=== PATIENT | female | born 1940 | race Caucasian/White ===

== ENCOUNTER 2018-02-04 14:00 | Outpatient (RCR) | payer BC, MEDICARE, SELFPAY ==
--- NOTE | 2018-01-10 14:41 | IE_ITS ---
Date: 01/10/18 Referring: Selwyn Frias MD M.D. Diagnosis: Vertigo, Mackenzie Training, Aerobic Guidance P.T. Diagnosis: Difficulty changing positions. 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 She states that for 2 weeks now she has had some issues with vertigo and she first noticed it while performing Piliates and at the end of the class she was performing a stretch and felt a sudden feeling like she was going to pass out. She saw her doctor who performed an Mackenzie maneuver and she was really no better. Then she was receiving a back rub by her while lying on her side. Upon rolling back over she noticed a very similar dizziness sensation but this time had spinning associated with this as well. She was taken to the ER and labs were negative and she was dx with vertigo as well as a PVC arrhythmia. She states that she has gotten a little bit better since. But she still wanted to pursue PT to see if there is anything else that can be done. Symptom Ratin/10 Prior Level of Function: Unrestricted Current Level of Function: Difficulty with any positional change of the head or body. She is unable to bend over, she cant look up without getting symptomatic involvement. Previous Treatment: Nothing yet Social: She lives in [place], [place] with her . Comorbidities: Hx of thyroid removed. Medications: Levothyroxine, Metoprolol Quality of Life: __X__ Good Standardized Measures: Other: __DHI- 46%__ OBJECTIVE: Posture: In standing pt demonstrates no significant postural abnormality worthy of note, other than a mild forward head position. Gait: Unremarkable no evidence of any severe antalgia or ataxia. Palpation: Non tender to palpation along multiple points of the head, face and neck. Vitals: BP in the sitting position 123/77 HR 90, in the standing position BP 109/71 HR 98 no symptomatic response with any positional change while taking vitals. ROM: Cervical extension 50% of available motion and guarded but non symptom provoking Cervical flexion 75% of normal motion and guarded but non symptom provoking Cervical rotation 50% of available motion and non symptom provoking Strength: Mid delt 5/5 Biceps 5/5 Wrist extension and flexion 5/5 Triceps 5/5 Actuarial Trainee strength is strong and symmetrical (B) Hip flexion 5/5 Quads 5/5 Hamstrings 5/5 Dorsiflexion/ Plantarflexion 5/5 Neuro: Pt intact to light touch and sensation through UE/ LE dermatomes, motor control appears intact through associated myotomes and pt demonstrates appropriate proprioception and kinesthetic awareness. Special Tests: Smooth pursuit and saccade with no sign of ocular drift but pt describes a mild increase in her symptoms. VOR testing pt is reluctant to proceed with any oscillation greater than 30 bpm and on this test there was no sign of ocular drift because the pt could not increase her frequency so the test was essentially invalid. Head shake and head thrust test is inconclusive as pt guards through the motion. Dikes Halpike testing with no symptomatic on either (R) or (L) side with either true vertigo or nystagmus however pt has a very strong apparent vaso vagal reaction where she appears to be lightheaded. Upon restoring the position upright she instantly gets a resolution of her symptoms. Pt admits to being very anxious at the thought of getting some of her particularly dizzy symptoms. Treatment: Tx today included the initial eval and assessment of functional abilities as well as training in a formal exercise program. Pt demonstrated verbal acknowledgment and technique demonstration. Pt taken through an Mackenzie canalith maneuver for (L) side semi circular canal bias. This is done with an attempt to see if there is any underlying symptoms with positional change and pt was very reluctant and very guarded throughout the motion of movement and this may have compromised the integrity of the maneuver. Prior to the actual Mackenzie pt was taken through a Rhomberg test and was identified that she does have a balance deficit with eyes closed making the test positive for both tandem and tightened stance. However pt is still given post tx instructions. IE: [id number] Direct treatment time: 70 minutes Total treatment time: 70minutes ASSESSMENT: Patient is a 77-year-old female with a hx of good physical health, referred for PT services with the diagnosis of vertigo. Patient presents with clinical signs and symptoms consistent with a possible resolving case of vertigo with posterior semi circular canal involvement on the (L) side, as demonstrated by the following impairment level findings: Mild symptom apprehension with positional changes of the head, strong anxiety response when in a supine position, positive rhomberg test with eyes open and eyes closed. Impairments are contributing to the following functional limitations: Difficulty with changes in position of the head, positional changes of the body. Patient is assessed as: __X__ Low [id number] ____ Moderate [id number] ____ High [id number] complexity, based on the following: History: Thyroid removed. Examination: Positive Romberg, strong anxiety response when placed in the Dikes Halpike or any supine position, strong apprehension to cervical spine motion. Presentation: X Stable Decision-Making: X Low complexity 46 % Disability based on DHI __X__ Patient requires skilled PT intervention to remediate the above functional limitations to return to: __X__ Premorbid level of function Prognosis: __X__ Good as evidence suggests improvements of functional abilities with compliance to a detailed HEP tailored to her dx and following through with PT intervention. G-Codes: Patient's primary functional limitation is in the category of: __X__ Changing and maintaining body position: [id number] based by her inability to perform any bending over motions which interferes with her house work and she is also reluctant to perform any cervical spine motion which interferes with most ADLs. Projected goal: __X__ Changing and maintaining body position: [id number] to return to premorbid level of function considering age related deficits. STG: __2__ weeks. 1 . Pt will be (I) in HEP both verbally and with ideal technique demonstration. LTG: __6__ weeks. 1. Pt unlimited involvement in all household activities including ADLs, positional changes of the head and bending over from the waist. PLAN: Patient to be seen 2 x per week, for 6 weeks, adjusting frequency of visits per patient symptoms and response to treatment. Treatment to include: X Therapeutic exercise - [id number] cardiovascular training through tailored customized endurance activity. X NRE- Utilizing canalith repositioning maneuver for restoring balance and equilibrium to the vestibular system and working on proprioceptive retraining through balance work and safety awareness. Pt will be monitored for compliance in HEP and pt status will be updated accordingly. Plan may be modified as symptoms dictate. Thank you for this referral. Please do not hesitate to contact me with any questions or concerns regarding this patient's plan of care. Selwyn Frias MD please sign below if you are in agreement with this patient's plan of care,
--- NOTE | 2018-01-13 13:20 | PTTR_ITS ---
DATE: 01/13/18 SUBJECTIVE: Pt states that she is doing quite a bit better.She has been monitoring her activity and has lightly returned to some of her Pilates type stretching. OBJECTIVE: * X Neuro Re-education - ([id number] x2):Pt was placed in the standing position demonstrating full cervical spine motion without any hesitation and no evidence of symptoms. She then performs multi-segmental trunk flexion, being able to touch her toes completely, returning to neutral without getting any symptom provocation. She is then placed into long sit on the table lowered down into supine with head looking straight towards the ceiling.She has no symptom provocation with this. Upon being returned to a long sit position, pt once again with no functional complaint of symptoms.She is then assessed with a Davina Deleon on the L, experiencing no real functional deficit, no influence of symptoms and no anxiety provocation. She is taken through a L side posterior semi-circular canal Mackenzie maneuver without any affects when brought up to the edge of the table upon completion of the maneuver. She is then trained in 2 different habituation type exercises, one with light rolling onto her L side complete with quarter turns, and then in standing she will complete quarter turns, not trying to provoke symptoms but in a way to return to normal functional vestibular stimuli. Pt tolerated treatment well. Direct treatment time: 30 min Total treatment time: 30 min direct pt care CECELIA/sarah beth
--- NOTE | 2018-01-27 15:44 | PTTR_ITS ---
DATE: 01/27/18 SUBJECTIVE: I am not doing too bad for the most part. Still having some issues from time to time. OBJECTIVE: Therapeutic procedures ([id number]). * X HEP review: Technique review and corrective modification where appropriate. * X See flow sheet: * X Provided skilled instruction in proper exercise performance: [] * X Provided skilled manual cues to facilitate proper muscle recruitment and/ or movement pattern: [] * X Other: Patient trained in habituation type exercises for vestibular accommodation. She was guided through slow progression sagittal position changes right on the verge of symptoms. Patient was guided through a modified [place] step test with HR monitoring and sit to stand endurance testing. Direct treatment time: 30 minutes of direct patient care.
--- NOTE | 2018-02-01 17:02 | PTTR_ITS ---
DATE: 02/01/18 SUBJECTIVE: I am doing okay today. OBJECTIVE: . Therapeutic procedures ([id number]). * X HEP review: Technique review and corrective modification where appropriate. * X See flow sheet: * X Provided skilled instruction in proper exercise performance: [] * X Provided skilled manual cues to facilitate proper muscle recruitment and/ or movement pattern: [] * X Other: Patient completed all corrective activities with good compliance. Direct treatment time: 30 minutes of direct patient care.
--- NOTE | 2018-02-04 15:08 | PTTR_ITS ---
DATE: 02/04/18 SUBJECTIVE: I am doing pretty well for the most part. OBJECTIVE: Therapeutic procedures ([id number]). * X HEP review: Technique review and corrective modification * X See flow sheet: Completed all activities * X Provided skilled instruction in proper exercise performance: [] * X Provided skilled manual cues to facilitate proper muscle recruitment and/ or movement pattern: [] * X Other: Patient trained in corrective instruction with exercises for the goal of establishing at least baseline familiarity with them to start her involvement in the minimally supervised program. Direct treatment time: 45 minutes of direct patient care.
== END 2018-02-04 23:59 | disposition home or self-care (01) ==
LOC: PT 14:00
PROVIDERS: PCP Internal Medicine; Referring Provider Internal Medicine; Visit Provider Internal Medicine
DX: H81.12 Benign paroxysmal vertigo, left ear (principal)
CPT/HCPCS: 97110; 97112; 97161

== ENCOUNTER 2024-02-14 02:28 | Emergency (ER) | payer MEDICARE, BC, SELFPAY ==
[2024-02-14 02:59] VITALS: BP 185/115; PULSE 73; RESP 16; TEMP 36.7; O2SAT 98
--- NOTE | 2024-02-14 03:30 | DI.RAD_ITS ---
Exam(s) XR HAND RT COMPLETE EXAM: XR HAND RT COMPLETE CLINICAL HISTORY: laceration to base of thumb, eval foreign body. TECHNIQUE: 2D digital imaging was performed. Three views. COMPARISON: No exams were available for comparison FINDINGS: BONES: No acute fracture is present. No bony destructive lesion is seen. JOINTS: No dislocation present. Severe degenerative changes 1st carpal metacarpal joint as well as interphalangeal joints of the fingers. SOFT TISSUE: Swelling around wrist. No foreign body. IMPRESSION: Degenerate changes. No evidence of foreign body DATA REPOSITORY: RADIATION DOSE DELIVERED:
--- NOTE | 2024-02-14 03:38 | W.ED.GENAD ---
Discharge Plan Disposition Patient Disposition: Home Condition: Good Discharge Details Clinical Impression: Laceration of right hand ED Provider: Kristel Carrizales Home Meds and New Rx's Prescriptions: Continued levothyroxine 125 MCG tablet 112 mcg PO DAILY lisinopril 5 mg tablet 5 mg PO DAILY latanoprost 0.005 % drops 1 drp ophthalmic (eye) DAILY Patient Comments: INSTILL ONE DROP IN EACH EYE EVERY EVENING metoprolol tartrate 12.5 MG tablet 12.5 mg PO DAILY Discharge Instructions Instructions: Laceration Repair With Stitches ED Additional Instructions: Stitches out in 7-10 days; primary care doctor, urgent care, or here in the ED. Keep the wound clean and dry; it is okay to shower but do not soak your hand. Return to the emergency department for new or worsening symptoms including worsening pain, thick green or white discharge from the wound, redness spreading from around the wound, numbness in your thumb or difficulty moving your thumb, or if you have any other concerns. HPI General Mode of arrival: ambulatory. Date/Time Provider Initiated Documentation: 02/14/24 03:04. Limitations to Documentation: no limitations. Information obtained by: patient and family. HPI Narrative: 83yo F not on AC presenting with laceration. Broke a glass in the sink and cut her hand at the base of her thumb, initially was bleeding heavily. No numbness, tingling, or weakness in her thumb or hand. No lightedheadness. Otherwise in her usual state of health. Related Data Home Medications ?Medication ?Instructions ?Recorded ?Confirmed levothyroxine 125 mcg tablet 112 mcg PO DAILY 11/26/12 02/14/24 metoprolol tartrate 25 mg tablet 12.5 mg PO DAILY 12/24/17 02/14/24 latanoprost 0.005 % eye drops 1 drp ophthalmic (eye) DAILY 02/14/24 02/14/24 lisinopril 5 mg tablet 5 mg PO DAILY 02/14/24 02/14/24 Allergies Allergy/AdvReac Type Severity Reaction Status Date / Time No Known Allergies Allergy Unverified 02/14/24 03:12 General Stated Complaint: Laceration ADOLFO: 4 Review of Systems Narrative: see HPI Exam Narrative Exam Narrative: General: Alert, well appearing, well nourished, in no acute distress. Head: Normocephalic, atraumatic Neck: Trachea midline, ?Neck supple. Cardiac: ?Well perfused. Equal symmetric 2+ radial pulses bilaterally. Resp: No respiratory distress. Speaking in full sentences. Abd: ?Non-distended Extremities: ?No deformities.? No peripheral edema. RUE: ~2.5cm shallow linear laceration to palmar/lateral surface of hand just proximal to thumb. Hemostatic. Sensation to light touch intact throughout hand and thumb, full strength at all digits. Neurologic: GCS 15. ? Moves all extremities freely against gravity Course Vital Signs Vital signs: Vital Signs Temperature 36.7 C 02/14/24 02:59 Pulse 73 02/14/24 02:59 Respiratory Rate 16 02/14/24 02:59 Blood Pressure 185/115 H 02/14/24 02:59 Pulse Oximetry 98 02/14/24 02:59 Temperature 36.7 C 02/14/24 02:59 Temperature Source Temporal Artery Scan 02/14/24 02:59 Pulse 73 02/14/24 02:59 Respiratory Rate 16 02/14/24 02:59 Respiratory Effort Normal, Non-Labored 02/14/24 03:03 Blood Pressure 185/115 H 02/14/24 02:59 Blood Pressure Position Sitting 02/14/24 02:59 Pulse Oximetry 98 02/14/24 02:59 Oxygen Delivery Method Room Air 02/14/24 02:59 Oxygen Flow Rate 0 02/14/24 02:59 Pain Level 0 02/14/24 02:59 Procedures Laceration Laceration 1: Site: hand Side (If applicable): right Size (cm): 2.5 Description: linear Depth: simple, single layer Local anesthetic: Lidocaine 2% and with Epi Amount of anesthesia used (mL): 4 Pre-repair: wound explored, irrigated extensively and deep structures intact Skin layer closed with: nylon Size (cm): 5-0 Number of sutures: 8 Technique: simple, interrupted Medical Decision Making 83yo F not on AC presenting with laceration; broke a glass in the sink and cut her hand at the base of her thumb. Hypertensive on arrival, vital signs otherwise reassuring. ~2.5cm shallow linear laceration at base of thumb, hemostatic, no sensory or motor deficits. Not concerned for hemodynamically significant hemmoraghe; would not get labs. No indication for CT/vascular imaging. Will get plain films to eval for foreign body. Unknown last tetanus; will give booster. Plain films independently reviewed; no radioopaque foreign body on my view, agree with radiology read below. Laceration repaired. On reassessment patient continues with full intact sensation and movement throughout thumb and hand. Discharged home; discharge instructions and return precautions were reviewed with patient who verbalized understanding. All questions were answered and she is in full agreement with the plan. Imaging Data Radiologic Study: Imaging: X-Ray Radiologist's impression: IMPRESSION: 1. No acute fracture or subluxation. 2. No radiopaque foreign body identified. 3. Soft tissue swelling. Quality:SDOH Health Related Social Needs: No Data to Display [facility] All Active Problems (Updated 02/14/24 @ 04:48 by Kristel Carrizales MD) Laceration of right hand (Acute) Social History Smoking/Tobacco Use Status: Never Smoking risk assessment performed?: Yes Alcohol Intake: never Drug use: Never Substance use type: does not use Housing: house Do you feel safe at home: Yes Do you feel safe in your relationship?: Yes
[2024-02-14] MEDS: Tetanus & Diphtheria Tox,ADULT 0.5 ML VIAL IM (04:53)
--- NOTE | 2024-02-14 04:53 | DI.VRAD_ITS ---
PROCEDURE INFORMATION: Exam: XR Right Hand Exam date and time: 02/14/2024 4:01 AM Age: 83 years old Clinical indication: Injury or trauma; Other: Cut from glass; Laceration; Hand; Right; Injury date: 02/14/24; Injury details: Cut by glass, base of thumb/palm TECHNIQUE: Imaging protocol: Radiologic exam of the right hand. Views: 3 or more views. COMPARISON: No relevant prior studies available. FINDINGS: Bones/joints: No acute fracture or subluxation. Degenerative changes. Soft tissues: Soft tissue swelling in the wrist. No radiopaque foreign body identified. IMPRESSION: 1. No acute fracture or subluxation. 2. No radiopaque foreign body identified. 3. Soft tissue swelling. Dictated and Authenticated by: Vineet Ortiz MD. Ordering:JEWEL Humphries MD
--- NOTE | 2024-02-14 05:01 | NUR.NOTE ---
Suture repair dressed with bacitracin, telfa, and kerlix per provider, ANGELLA
[2024-02-14 05:07] VITALS: BP 167/79; PULSE 71; RESP 16; O2SAT 97
== END 2024-02-14 05:21 | disposition home or self-care (01) ==
LOC: ER 05:58
PROVIDERS: Emergency Provider Student in an Organized Health Care Education/Training Program
DX: S61.411A Laceration without foreign body of right hand, initial encounter (principal); Z23 Encounter for immunization; W25.XXXA Contact with sharp glass, initial encounter
CPT/HCPCS: 12001; 90471; 90714; 99284; 73130; 99283

== ENCOUNTER 2024-09-26 21:14 | Outpatient (REF) | payer MEDICARE, BC, SELFPAY | END 2024-09-26 21:15 | disposition home or self-care (01) | LOC: LBN 21:14 | PROVIDERS: PCP Internal Medicine; Visit Provider Nurse Practitioner Family | DX: N30.00 Acute cystitis without hematuria (principal) | CPT/HCPCS: 87086 ==

== ENCOUNTER 2025-03-04 17:28 | Observation (INO) | payer MEDICARE, BC, SELFPAY ==
[2025-03-04] VITALS (13 sets, daily range): BP systolic 93–146; BP diastolic 39–77; PULSE 81–108; RESP 9–28; TEMP 36.5–36.7; O2SAT 91–98
--- NOTE | 2025-03-04 17:30 | RT.EKG_ITS ---
APPROVED REPORT Exam: Resting ECG Reason for Exam: unresponsive, tachycardia Patient Location: E HR:81 bpm ECG Measurements Heart Rate 81 AXIS PA 169 P 70 QRSd 100 QRS 64 QT 408 T 50 QTc 474 Conclusion Sinus rhythm...normal P axis, V-rate 60- 99 Probable left atrial enlargement...P >50mS, <-0.10mV V1 Low voltage, precordial leads...precordial leads <1.0mV Physician: No STEMI
--- NOTE | 2025-03-04 17:30 | RT.EKG_ITS ---
APPROVED REPORT Exam: Resting ECG Reason for Exam: unresponsive Patient Location: E HR:108 bpm ECG Measurements Heart Rate 108 AXIS AL 152 P 79 QRSd 92 QRS 80 QT 342 T 51 QTc 459 Conclusion Sinus tachycardia...rate> 99 Probable left atrial enlargement...P >50mS, <-0.10mV V1 Probable inferior infarct, old...Q>35mS, II III aVF ST depr, consider ischemia, anterolateral lds...ST <-0.10mV, I aVL V2-V6 I have reviewed and interpreted ECG and agree with software generated interpretation. Physician: No STEMI
--- NOTE | 2025-03-04 17:45 | W.ED.GENAD ---
Discharge Plan Disposition Patient Disposition: Admit to [facility] Condition: Stable Discharge Details Clinical Impression: Unresponsive episode, Nodule of lower lobe of left lung, Lesion of humerus present on x-ray Admit Date/Time: 03/04/25 20:44 Admit Provider: Napoleon Rangel Attending Provider: Napoleon Rangel Primary Care Provider: ALIVIA TAI ED Provider: Bina Yang Discharge Data Discharge Date/Time-TO BE ENTERED AT DEPARTURE: 03/04/25 21:39 HPI General Date/Time Provider Initiated Documentation: 03/04/25 17:30. HPI Narrative: Karli is an 85-year-old female who presents to the emergency department today via private vehicle for unresponsiveness. She told her that she was feeling unwell while they were at a golf tournament, got into the car and became unresponsive approximately 10 minutes prior to arrival to ED. She was driven to the emergency department immediately, was found to be unresponsive to all commands, eyes partially open but not tracking. Episode lasted until approximately 5 minutes after arrival at which time she opened eyes spontaneously and is able to answer questions. She reports she is feeling so-so and says that she feels tired, denies headache, chest pain, difficulty breathing, abdominal pain, nausea/vomiting. Says she was feeling well when she woke up this morning, became unwell while golfing but cannot describe what symptoms she had. Says she took her medications this morning. After waking up, Karil was able to give more of a history. She reports that this she woke up feeling fine, ate a large breakfast. They went to a [place] the [employer] [place] with friends, she did 9 holes of golf, says that she was walking up and down hills. At the last hole she was walking up a hill and all of a sudden felt her heart racing and she felt unwell. She does have a history of tachycardia, says that this is the reason why she uses metoprolol. Usually when she ends up with tachycardia she has tingling in her fingers and feels warm all over. This time she did not have the warmth or the tingling, just felt unwell, so she laid down in the car. She remembers sitting her car seat back, and then waking up in the emergency department. She has a PCP in [place], Dr. Frias. Has seen cardiology previously, none recently, says cardiac meds are managed by PCP. Blood glucose 139 at arrival in ED. Admits to history of cardiac diagnoses (tachycardia), denies history of NC, takes metoprolol and lisinopril for hypertension.. Takes levothyroxine for hypothyroidism. On arrival, Ajay was unresponsive to voice or noxious stimuli, eyes were partially open, not moving any extremities. After awakening while en route to CT scan (stroke alert), she became alert and oriented x 4, easily conversational. Tacky mucous membranes. Easy work of breathing, lung sounds clear bilaterally. Normal heart sounds, regular rate and rhythm. Equal bilateral radial pulses. Abdomen soft, nondistended, nontender to palpation. Moving extremities equally, 5/5 muscle strength to upper and lower extremities. NIHSS 0. No pedal edema. D/dx includes but is not limited to: TIA, cardiac arrhythmia, cardiogenic syncope, nonconvulsive seizure, hydration, electrolyte imbalance, acute renal or liver failure, sepsis, encephalitis I independently interpreted the following tests: Initial EKG shows sinus tachycardia rate 108; repeat performed showing normal sinus rhythm rate 81, no changes consistent with his acute ischemia, normal intervals. CBC, CMP, serial troponins (10, 16), TSH, UA, and COVID/flu/RSV all reassuring. CMP only notable for elevated BUN to creatinine ratio (23:1.1), concerning for mild dehydration. CTA head and neck performed, no acute abnormalities noted. Chest x-ray performed, acute abnormalities. Dr. Alba did read the x-ray after V rad, noted sclerotic lesion on humerus and 9 mm left lower lobe lesion. As patient was already admitted by the time of this report was received, I notified hospitalist of results While in the emergency department, Karli received 500 cc normal saline. Reports feeling well overall, after recovery from unresponsive episode. Vital signs stable on monitor. Although workup today very reassuring, patient's cardiac history with history of tachycardia is concerning. Presented case to Dr. Juan Carlos vallejo; she is agreeable with plan to admit for observation overnight and close cardiology follow-up. Patient and her are agreeable with plan of care. Related Data Home Medications ?Medication ?Instructions ?Recorded ?Confirmed levothyroxine 125 mcg tablet 112 mcg PO DAILY 11/26/12 03/04/25 metoprolol tartrate 25 mg tablet 12.5 mg PO DAILY 12/24/17 03/04/25 latanoprost 0.005 % eye drops 1 drp ophthalmic (eye) HS 02/14/24 03/04/25 lisinopril 5 mg tablet 5 mg PO DAILY 02/14/24 03/04/25 timolol maleate 0.5 % eye drops 1 drp ophthalmic (eye) DAILY 03/04/25 03/04/25 Allergies Allergy/AdvReac Type Severity Reaction Status Date / Time No Known Allergies Allergy Unverified 03/04/25 20:53 General ADOLFO: 4 Exam Narrative Exam Narrative: Upon arrival: pt breathing spontaneously, easy work of breathing, lung sounds clear bilaterally. Normal heart sounds, tachycardia noted. Abdomen soft, nondistended. Tacky mucous membranes. Eyes open, not responding to verbal or tactile stimulus. After resolution of unresponsive episode (see by system below) Const General: cooperative, healthy appearing, comfortable, no acute distress and well developed Nutritional Appearance: average body habitus and well nourished Orientation: oriented x3 [facility] Head: normal to inspection, normocephalic and atraumatic Ears: hearing grossly normal bilaterally General nose exam: external nose normal Face and sinus: normal facial exam and dry mucous membranes (tacky MM) Mouth: oral mucosae normal, lip normal and tongue normal Teeth and gingiva: dentition normal Neck Neck: normal visual inspection and full ROM Resp Effort & Inspection: normal respiratory effort and able to speak in complete sentences Auscultation: clear to auscultation bilaterally Cardio Rate: regular rate Rhythm: regular rhythm GI Inspection: normal to inspection, no abdominal wall ecchymosis and non-distended Palpation: soft, not firm, no guarding, not rigid and nontender Auscultation: normal bowel sounds Skin General skin exam: no rashes or lesions noted Neuro General: patient alert, patient oriented x3, tone normal, moves all extremities, no meningeal signs, no focal motor deficits and CN's II-XI intact bilaterally Cranial Nerves: CN's II-XI intact bilaterally, PERRL, EOM intact bilaterally, no nystagmus and facial strength normal Cognition: normal cognition Speech: speech normal Gait: normal gait Motor: muscle tone normal throughout, strength 5/5 throughout and no pronator drift Sensory Exam: no sensory deficits noted Extrem General: normal to inspection, full ROM, capillary refill normal and no pedal edema Medical Decision Making Imaging Data Radiologic Study: Radiologist's impression: Exam(s) XR PORTABLE CHEST AP EXAM: XR PORTABLE CHEST AP CLINICAL HISTORY: unresponsive episode, not feeling well. TECHNIQUE: 2D digital imaging was performed. COMPARISON: CR CHEST 2 VIEWS PA,LAT from 12/21/2013 FINDINGS: Single AP portable view. Heart size is upper normal. The mediastinum is not widened. Right lung is clear. There is a small nodule in the left lower lobe retrocardiac region measuring 9 mm. No other focal pulmonary findings. Sclerotic focal densities seen in the right humeral head measuring 1 cm. Possible bone island but cannot exclude more significant pathology as this was not evident on the chest x-ray of 2013 which also included the right humeral head. IMPRESSION: There is a 9 mm nodule in the left lower lobe.Recommend follow-up CT scan Also finding in the right humeral head as described above. Radiologic Study #2: Radiologist's impression: Exam(s) CT BRAIN NECK CTA EXAM: CT BRAIN NECK CTA CLINICAL HISTORY: unresponsive. TECHNIQUE: Imaging Protocol: Axial CT angiography was performed with multi-slice acquisition and multi-planar and/or 3D reconstructions. CONTRAST MATERIAL: Intravenous: Omnipaque 350 Contrast volume:structured data in ml COMPARISON: No exams were available for comparison FINDINGS: CTA Neck W: Aortic arch anatomy: The aortic arch anatomy is conventional and there is no significant stenosis at the origin of the great vessels off of the aortic arch. No intimal flap evident. Anterior circulation: Both common carotid arteries ascend with normal luminal diameters. At the level the carotid bulbs and proximal internal carotid arteries there is both calcified and noncalcified plaque evident bilaterally. On the right side there is partially calcified plaque on the medial wall and also involving the proximal right ICA but the amount of stenosis is approximately only 10 percent. On the left side there is circumferential peripherally calcified plaque at the carotid bulb and proximal ICA with approximately 40 percent stenosis. Another area of peripherally calcified plaque is seen just above this but with only approximately 20 percent stenosis at this level in the proximal left ICA. Both internal carotid arteries in the upper neck are patent and non tortuous and there are demonstrated to be patent in the skull base-carotid canals. Posterior circulation: Both vertebral arteries originate in conventional fashion off of the subclavian arteries and there is no obvious stenosis at the origin of the vertebral arteries. Both vertebral arteries exhibit normal luminal diameters within the foramen transversarium. No significant stenosis nor thrombosis nor evidence of vertebral artery dissection. Both vertebral arteries contribute to the formation of the basilar artery at the skull base. No significant stenosis of these vessels at the skull base level. CTA Brain W: Anterior circulation: Both internal carotid arteries are patent in the skull base-carotid canals as well as within the cavernous sinuses. The supraclinoid aspects of the ICAs are patent. Both A1 segments are patent as are the anterior cerebral arteries and there is no evidence of aneurysm at the level of the anterior communicating artery. There is some variant at anatomy in the anterior cerebral artery with a dominant proximal anterior cerebral artery which bifurcates somewhat more distally. Both middle cerebral arteries are patent with no evidence of significant stenosis nor intraluminal thrombus. There also no aneurysms of these vessels. Posterior circulation: Basilar artery ascends without significant stenosis. Distally it gives off superior cerebellar arteries and above this level terminates as patent posterior cerebral arteries. There is no evidence of aneurysm at the tip of the basilar artery nor elsewhere in the [id number]. CT BRAIN: There is no evidence of intracranial hemorrhage, mass effect, or shift of midline structures. There are no extra-axial fluid collections. Ventricles are not enlarged or shifted. There are no ring enhancing lesions in the brain and no abnormal meningeal enhancement. IMPRESSION: 1. There is some atherosclerotic involvement of the carotid bulbs and proximal ICAs as described above, more prominent on the left side where there is approximately 40 percent stenosis. Significant less stenosis on the right side. No significant tortuosity of the internal carotid arteries in the neck and no evidence of dissection of these vessels. 2. Patent vertebral arteries. No stenosis, thrombosis, nor dissection. 3. Patent intracranial arteries. 4. No acute intracranial findings. PFSH All Active Problems (Updated 03/04/25 @ 22:37 by Bina Holman) Lesion of humerus present on x-ray (Acute) Nodule of lower lobe of left lung (Acute) Unresponsive episode (Acute) Social History Smoking/Tobacco Use Status: Never Smoking risk assessment performed?: Yes Alcohol Intake: never Drug use: Never Substance use type: does not use Housing: house Do you feel safe at home: Yes Do you feel safe in your relationship?: Yes
[2025-03-04 17:46] LABS: Abs Immature Grans 0.03 10^3/uL (0.0-0.06); HCT 44.5 % (36.0-46.0); HGB 14.5 g/dL (11.2-15.7); MCH 29.5 pg (27.0-33.0); MCHC 32.6 % (32.0-36.0); MCV 90 fL (80-95); MPV 10.4 fL (8.0-11.0); Platelet Count 304 10^3/uL (130-400); RBC 4.92 10^6/uL (3.93-5.22); RDW 12.2 % (11.7-14.6); RDW-SD 40.3 fL; WBC 8.02 10^3/uL (4.4-10.8)
[2025-03-04] MEDS: Omnipaque 350 MG/ML 100 ML BTL IJ (17:46)
[2025-03-04] MEDS: Normal Saline Flush 10 ML SYR IVP (17:46)
[2025-03-04] MEDS: Normal Saline - Diluent 50 ML VIAL IJ (17:47)
--- NOTE | 2025-03-04 18:00 | DI.CT_ITS ---
Exam(s) CT BRAIN NECK CTA EXAM: CT BRAIN NECK CTA CLINICAL HISTORY: unresponsive. TECHNIQUE: Imaging Protocol: Axial CT angiography was performed with multi- slice acquisition and multi-planar and/or 3D reconstructions. CONTRAST MATERIAL: Intravenous: Omnipaque 350 Contrast volume:structured data in ml COMPARISON: No exams were available for comparison FINDINGS: CTA Neck W: Aortic arch anatomy: The aortic arch anatomy is conventional and there is no significant stenosis at the origin of the great vessels off of the aortic arch. No intimal flap evident. Anterior circulation: Both common carotid arteries ascend with normal luminal diameters. At the level the carotid bulbs and proximal internal carotid arteries there is both calcified and noncalcified plaque evident bilaterally. On the right side there is partially calcified plaque on the medial wall and also involving the proximal right ICA but the amount of stenosis is approximately only 10 percent. On the left side there is circumferential peripherally calcified plaque at the carotid bulb and proximal ICA with approximately 40 percent stenosis. Another area of peripherally calcified plaque is seen just above this but with only approximately 20 percent stenosis at this level in the proximal left ICA. Both internal carotid arteries in the upper neck are patent and non tortuous and there are demonstrated to be patent in the skull base-carotid canals. Posterior circulation: Both vertebral arteries originate in conventional fashion off of the subclavian arteries and there is no obvious stenosis at the origin of the vertebral arteries. Both vertebral arteries exhibit normal luminal diameters within the foramen transversarium. No significant stenosis nor thrombosis nor evidence of vertebral artery dissection. Both vertebral arteries contribute to the formation of the basilar artery at the skull base. No significant stenosis of these vessels at the skull base level. CTA Brain W: Anterior circulation: Both internal carotid arteries are patent in the skull base-carotid canals as well as within the cavernous sinuses. The supraclinoid aspects of the ICAs are patent. Both A1 segments are patent as are the anterior cerebral arteries and there is no evidence of aneurysm at the level of the anterior communicating artery. There is some variant at anatomy in the anterior cerebral artery with a dominant proximal anterior cerebral artery which bifurcates somewhat more distally. Both middle cerebral arteries are patent with no evidence of significant stenosis nor intraluminal thrombus. There also no aneurysms of these vessels. Posterior circulation: Basilar artery ascends without significant stenosis. Distally it gives off superior cerebellar arteries and above this level terminates as patent posterior cerebral arteries. There is no evidence of aneurysm at the tip of the basilar artery nor elsewhere in the [id number]. CT BRAIN: There is no evidence of intracranial hemorrhage, mass effect, or shift of midline structures. There are no extra-axial fluid collections. Ventricles are not enlarged or shifted. There are no ring enhancing lesions in the brain and no abnormal meningeal enhancement. IMPRESSION: 1. There is some atherosclerotic involvement of the carotid bulbs and proximal ICAs as described above, more prominent on the left side where there is approximately 40 percent stenosis. Significant less stenosis on the right side. No significant tortuosity of the internal carotid arteries in the neck and no evidence of dissection of these vessels. 2. Patent vertebral arteries. No stenosis, thrombosis, nor dissection. 3. Patent intracranial arteries. 4. No acute intracranial findings. Preliminary virtual Radiology report was reviewed Final report called by myself to the hospitalist 03/04/2025 at 9:56 p.m. RADIATION DOSE DELIVERED: 2,308.16mGy.cm Total DLP DATA REPOSITORY: All CT scans at this facility are submitted to the National Radiology Data Registry (NRDR) Dose Index Registry (DIR) with the [employer] (ACR). RADIATION OPTIMIZATION: All CT scans at this facility use at least one of these dose optimization techniques: automated exposure control; mA and/or kV adjustment per patient size (includes targeted exams where dose is matched to clinical indication); or iterative reconstruction.
[2025-03-04 18:11] LABS: ALT 17 U/L (14-59); AST 17 U/L (15-37); Albumin 4.4 g/dL (3.4-5.0); Alkaline Phosphatase 80 U/L (46-116); Anion Gap 11.7 mmol/L (3-11); BUN 23 mg/dL (7-18); Bilirubin, Total 0.6 mg/dL (0.2-1.0); CO2 24.3 mmol/L (21.0-32.0); Calcium 9.5 mg/dL (8.5-10.1); Chloride 105 mmol/L (98-107); Estimated GFR 48.63 (mL/min/1.73m2); Glucose 153 mg/dL (74-106); Potassium 4.3 mmol/L (3.5-5.1); Sodium 141 mmol/L (136-145); TSH (W/Ref FT4) 5.07 uIU/mL (0.36-3.74); Total Protein 7.1 g/dL (6.4-8.2); Troponin I 10 ng/L (<or=51)
--- NOTE | 2025-03-04 18:12 | DI.VRAD_ITS ---
PROCEDURE INFORMATION: Exam: CTA Head Without And With Contrast, Arteriography Exam date and time: 03/04/2025 5:43 PM Age: 85 years old Clinical indication: Stroke-like symptoms; Other: Unresponsive TECHNIQUE: Imaging protocol: Computed tomographic angiography of the head without and with contrast. Exam focused on the arteries. 3D rendering (Not supervised by radiologist): MIP and/or 3D reconstructed images were created by the technologist. Contrast material: OMNIPAQUE 350; Contrast volume: 70 ml; Contrast route: INTRAVENOUS (IV); Other technique: STROKE PROTOCOL was implemented. COMPARISON: No relevant prior studies available. FINDINGS: ANTERIOR CIRCULATION: Right internal carotid artery: Intracranial segment is patent with no significant stenosis or occlusion. No aneurysm. Right middle cerebral artery: No occlusion or significant stenosis. No aneurysm. Right anterior cerebral artery: No occlusion or significant stenosis. No aneurysm. Left internal carotid artery: Intracranial segment is patent with no significant stenosis. No aneurysm. Left middle cerebral artery: No occlusion or significant stenosis. No aneurysm. Left anterior cerebral artery: No occlusion or significant stenosis. No aneurysm. POSTERIOR CIRCULATION: Right vertebral artery: No occlusion or significant stenosis. No aneurysm. Left vertebral artery: No occlusion or significant stenosis. No aneurysm. Basilar artery: No occlusion or significant stenosis. No aneurysm. Right posterior cerebral artery: No occlusion or significant stenosis. No aneurysm. Left posterior cerebral artery: No occlusion or significant stenosis. No aneurysm. HEAD: Brain: Normal. No hemorrhage. Unremarkable white matter. No mass effect. Cerebral ventricles: Normal. No ventriculomegaly. Bones: Unremarkable. No acute fracture. Paranasal sinuses: Visualized sinuses are normal. No fluid levels. Mastoid air cells: Visualized mastoids are normal. No mastoid effusion. Soft tissues: Unremarkable. IMPRESSION: 1. No large vessel occlusion. 2. Unremarkable CT head. ASSESSMENT: ASPECTS ([place] Stroke Program Early CT Score) is 10. PROCEDURE INFORMATION: Exam: CTA Neck Without And With Contrast Exam date and time: 03/04/2025 5:43 PM Age: 85 years old Clinical indication: Stroke-like symptoms; Other: Unresponsive TECHNIQUE: Imaging protocol: Computed tomographic angiography of the neck without and with contrast. Exam focused on the cervical segments of the vasculature. 3D rendering (Not supervised by radiologist): MIP and/or 3D reconstructed images were created by the technologist. Contrast material: OMNIPAQUE 350; Contrast volume: 70 ml; Contrast route: INTRAVENOUS (IV); COMPARISON: No relevant prior studies available. FINDINGS: Right common carotid artery: No stenosis. No dissection or occlusion. Right internal carotid artery: No stenosis of the extracranial segment. No dissection or occlusion. Right external carotid artery: No occlusion or stenosis of the origin. Left common carotid artery: No stenosis. No dissection or occlusion. Left internal carotid artery: No stenosis of the extracranial segment. No dissection or occlusion. Left external carotid artery: No occlusion or stenosis of the origin. Right vertebral artery: No stenosis. No dissection or occlusion. Left vertebral artery: No stenosis. No dissection or occlusion. Soft tissues: Normal. No significant soft tissue swelling. Bones/joints: No acute fracture. IMPRESSION: No stenosis or occlusion. REFERENCES: NASCET CRITERIA. The degree of stenosis in the cervical segment of the internal carotid artery is based on NASCET criteria. Normal is no stenosis. Mild is less than 50% stenosis. Moderate is 50-69% stenosis. Severe is 70% to 99% stenosis. Total occlusion is no detectable patent lumen. Dictated and Authenticated by: Sanju Gibbons MD. Orderin Jonas Curran MD
[2025-03-04] MEDS: Normal Saline 500 ML IV (18:14)
[2025-03-04 18:23] LABS: Immature Grans % 0.0 %
[2025-03-04 18:24] LABS: RBC Morphology Normal
--- NOTE | 2025-03-04 18:28 | DI.VRAD_ITS ---
PROCEDURE INFORMATION: Exam: XR Chest Exam date and time: 03/04/2025 6:13 PM Age: 85 years old Clinical indication: Other: Unresponsive, not feeling well TECHNIQUE: Imaging protocol: Radiologic exam of the chest. Views: 1 view. COMPARISON: No relevant prior studies available. FINDINGS: Lungs: Unremarkable. No consolidation. Pleural spaces: Unremarkable. No pleural effusion. No pneumothorax. Heart/Mediastinum: Unremarkable. No cardiomegaly. Bones/joints: Degenerative changes of the spine and bilateral shoulder joints. IMPRESSION: No acute findings. Dictated and Authenticated by: Sanju iGbbons MD. Orderin Jonas Curran MD
[2025-03-04 19:15] LABS: COVID-19 PCR Negative (Negative); RSV PCR Negative (Negative)
[2025-03-04 19:30] LABS: Troponin I 16 ng/L (<or=51)
[2025-03-04 20:40] LABS: Glucose Negative (Negative)
[2025-03-04 20:47] LABS: C & S Indicated? Yes; RBC 0-2 HPF (0-2)
--- NOTE | 2025-03-04 20:54 | W.PM.HP.N ---
Date of service: 03/04/25 Time of Service: 20:00 Assessment and Plan Assessment and plan (1) Unresponsive episode: Status: Acute Assessment and plan: Approximately 15 minutes of unresponsiveness after syncopal event Concerning for CVA but CT/CTA negative for acute pathology Less likely post-ictal given cardiac history Admit for observation and cardiac monitoring Likely can DC Mar 05 with close outpatient cardiology followup (2) Syncope and collapse: Status: Acute Assessment and plan: Exhaustion vs dehydration vs tachycardia Slow return to responsiveness concerning as above (3) Chronic tachycardia: Status: Acute Assessment and plan: Patient reports previous episodes of palpitations and has been worked up by cardiology Continue home metoprolol (4) Benign essential hypertension: Status: Acute Assessment and plan: Normotensive on admission Continue home lisinopril, metoprolol (5) Hypothyroidism: Status: Chronic Assessment and plan: TSH and free T4 slightly elevated Hold levothyroxine Recommend recheck with PCP for possible medication adjustment (6) Nodule of lower lobe of left lung: Status: Acute Assessment and plan: Incidental finding on XR 9 mm nodule in LLL Outpatient followup (7) Lesion of humerus present on x-ray: Status: Acute Assessment and plan: Incidental finding on XR 1 cm sclerotic lesion in the right humeral head Outpatient followup (8) Glaucoma: Status: Chronic Assessment and plan: Continue home latanoprost and timolol History of Present Illness History of Present Illness Chief Complaint: syncope Narrative: Karli Rojas is an 85 year old woman presenting March 04 after an episode of syncope and 15 minutes of unresponsiveness. She participated in a golf tournament today, playing 9 holes with exertion climbing hills. Towards the end of the course she felt her heart racing, and reported to her that she did not feel well. Shortly after she sat down in the car and passed out, and for 15 minutes she was not rousable. In the ED patient was initially unresponsive, with eyes open but not tracking, and after about 5 minutes she roused and began to interact. She was unable to recall any events between sitting in the car and waking up in the ED. 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 She reports that she took her medications as usual this morning including her levothyroxine, lisinopril and metoprolol. No chest pain, no shortness of breath, no abdominal pain, no N/V/D. In the ED she was mildly tachycardic 108, hypotensive 93/41, tachypneic 28. EKG without evidence of STEMI. CXR with 9mm LLL pulmonary nodule and 1 cm sclerotic density in the right humeral head; no acute pathology. CT/CTA head/neck without acute lesion nor vascular occlusion; bilateral carotid atherosclerosis with 40% stenosis on the left. CBC unremarkable. BUN and creatinine mildly elevated at 23 and 1.1, glucose elevated 153. TSH elevated 5.07 with free T4 elevated 1.52. Proteinuria. Negative flu/COVID/RSV panel. Urine culture sent. PMH includes HTN on lisinopril and metoprolol, hypothyroidism on levothyroxine, glaucoma on latanoprost and timolol. She lives in [place] with her and enjoys an active lifestyle. PFSH All Active Problems (Updated 03/05/25 @ 01:09 by Napoleon Rangel MD) Glaucoma (Chronic) Hypothyroidism (Chronic) Chronic tachycardia (Acute) Benign essential hypertension (Acute) Syncope and collapse (Acute) Lesion of humerus present on x-ray (Acute) Nodule of lower lobe of left lung (Acute) Unresponsive episode (Acute) Social History Smoking/Tobacco Use Status: Never Smoking risk assessment performed?: Yes Alcohol Intake: never Drug use: Never Substance use type: does not use Housing: house Do you feel safe at home: Yes Do you feel safe in your relationship?: Yes Meds Allergies and Home Medications Allergies Allergy/AdvReac Type Severity Reaction Status Date / Time No Known Allergies Allergy Unverified 03/04/25 20:53 Home Medications ?Medication ?Instructions ?Recorded ?Confirmed ?Type levothyroxine 125 mcg tablet 112 mcg PO DAILY 11/26/12 03/04/25 History metoprolol tartrate 25 mg tablet 12.5 mg PO DAILY 12/24/17 03/04/25 History latanoprost 0.005 % eye drops 1 drp ophthalmic (eye) HS 02/14/24 03/04/25 History lisinopril 5 mg tablet 5 mg PO DAILY 02/14/24 03/04/25 History timolol maleate 0.5 % eye drops 1 drp ophthalmic (eye) DAILY 03/04/25 03/04/25 History Exam Narrative Exam Narrative: General: This is a pleasant, elderly woman in no distress HEENT: Normocephalic, atraumatic CV: RRR Resp: CTAB Abd: soft, NTND MSK: voluntary motion x4 Neuro: awake, alert, no focal deficits Results Labs 03/04/25 17:38 03/04/25 17:38 Labs: Laboratory Results - last 24 hr 03/04/25 03/04/25 03/04/25 17:38 18:06 19:08 WBC 8.02 RBC 4.92 Hgb 14.5 Hct 44.5 MCV 90 MCH 29.5 MCHC 32.6 RDW 12.2 Plt Count 304 MPV 10.4 Immature Gran % 0.0 Neutrophils % 22.0 Lymphocytes % 66.0 Atypical Lymphs % 4 Monocytes % 6.0 Eosinophils % 2.0 Basophils % 0.0 Nucleated RBC % 0.0 Absolute Neutrophils 1.76 Absolute Lymphocytes 5.61 H Absolute Monocytes 0.48 Absolute Eosinophils 0.16 Absolute Basophils 0.00 RBC Morphology Normal Sodium 141 Potassium 4.3 Chloride 105 Carbon Dioxide 24.3 Anion Gap 11.7 H BUN 23 H Creatinine 1.1 H Est GFR (CKD-EPI 2020) 48.63 Glucose 153 H Calcium 9.5 Total Bilirubin 0.6 AST 17 ALT 17 Alkaline Phosphatase 80 Troponin I 10 16 Total Protein 7.1 Albumin 4.4 TSH 5.07 H Free T4 1.52 H Urine Color Urine Clarity Urine pH Ur Specific [place] Urine Protein Urine Ketones Urine Blood Urine Nitrite Urine Bilirubin Urine Urobilinogen Ur Leukocyte Esterase Urine RBC Urine WBC Ur Epithelial Cells Urine Crystals Urine Bacteria Urine Casts Urine Mucus Urine Other Ur Culture Indicated? Urine Glucose COVID-19 Source Nasopharynx SARS-CoV-2 (PCR) Negative Influenza Type A (PCR) Negative Influenza Type B (PCR) Negative RSV (PCR) Negative 03/04/25 20:25 WBC RBC Hgb Hct MCV MCH MCHC RDW Plt Count MPV Immature Gran % Neutrophils % Lymphocytes % Atypical Lymphs % Monocytes % Eosinophils % Basophils % Nucleated RBC % Absolute Neutrophils Absolute Lymphocytes Absolute Monocytes Absolute Eosinophils Absolute Basophils RBC Morphology Sodium Potassium Chloride Carbon Dioxide Anion Gap BUN Creatinine Est GFR (CKD-EPI 2020) Glucose Calcium Total Bilirubin AST ALT Alkaline Phosphatase Troponin I Total Protein Albumin TSH Free T4 Urine Color Yellow Urine Clarity Clear Urine pH 6.5 Ur Specific [place] 1.010 Urine Protein 30 H Urine Ketones Negative Urine Blood Negative Urine Nitrite Negative Urine Bilirubin Negative Urine Urobilinogen 0.2 Ur Leukocyte Esterase Trace H Urine RBC 0-2 Urine WBC 10-20 H Ur Epithelial Cells Few Urine Crystals Negative Urine Bacteria Few Urine Casts Negative Urine Mucus Trace Urine Other Rare Renal Ur Culture Indicated? Yes Urine Glucose Negative COVID-19 Source SARS-CoV-2 (PCR) Influenza Type A (PCR) Influenza Type B (PCR) RSV (PCR) Last Vital Signs Temp 36.5 C 03/04/25 18:04 Pulse 85 03/04/25 18:10 Resp 12 03/04/25 18:10 BP 105/39 L 03/04/25 18:04 Pulse Ox 96 03/04/25 20:27 Time Spent Time spent with Patient: 40-54 minutes Time was spent: preparing to see the patient(eg.review tests), obtaining and/or reviewing separately otained hiistory, ordering medications,tests, procedures, referring, communicating with other health career development facilitator, indepentently interpreting results, counseling the patient and care coordination
[2025-03-04 21:21] LABS: Troponin I 36 ng/L (<or=51)
--- NOTE | 2025-03-04 21:23 | W.PC.ACHO ---
Registration Status: REG ER Primary Language: Preferred Language: Mongolian ED Information & Data Chief Complaint AMS/LOC 03/04/25 18:03 Chief Complaint AMS/LOC 03/04/25 17:58 Triage Note pt was playing golf and then 03/04/25 17:58 walked up a hill, then stated she didn't feel well and went to the car, her came to the car behind her and found her in the car unresponsive Most Recent Vital Signs Temperature 36.5 C 03/04/25 18:04 Temperature Source Oral 03/04/25 18:04 Pulse 85 03/04/25 18:10 Pulse 85 03/04/25 18:10 Respiratory Rate 12 03/04/25 18:10 Respiratory Effort Normal, Non-Labored 03/04/25 20:27 Respiratory Depth Normal 03/04/25 20:27 Respiratory Pattern Normal 03/04/25 20:27 Blood Pressure 105/39 L 03/04/25 18:04 Blood Pressure Mean 58 03/04/25 18:01 Blood Pressure Position Sitting 03/04/25 18:04 Pulse Oximetry 96 03/04/25 20:27 Oxygen Delivery Method Room Air 03/04/25 20:27 Oxygen Flow Rate 0 03/04/25 20:27 Allergies No Known Allergies Allergy (Unverified 03/04/25 20:53) Active Medications Generic Name Dose Route Start Last Admin Trade Name Freq PRN Reason Stop Dose Admin Iohexol 100 ml 03/04/25 17:45 03/04/25 17:46 Omnipaque 350 Mg/Ml 100 Ml Btl IJ 04/03/25 23:59 75 ml DIRECTED MEDINA Administration Sodium Chloride 50 ml 03/04/25 17:45 03/04/25 17:47 Normal Saline - Diluent 50 Ml Vial IJ 50 ml DIRECTED MEDINA Administration Sodium Chloride 0 ml 03/04/25 17:45 03/04/25 17:46 Normal Saline Flush 10 Ml Syr IVP 10 ml PRN PRN Administration IV IV Catheter Type [Left Forearm Saline Lock ] IV Catheter Gauge [Left 18 Forearm] Diet Orders Category Date Time Status Regular/Normal [DIET] Nutrition 03/05/25 Breakfast Ordered Diagnostics 03/04/25 03/04/25 03/04/25 Range/Units 20:54 20:25 19:08 WBC (4.4-10.8) 10^3/uL RBC (3.93-5.22) 10^6/uL Hgb (11.2-15.7) g/dL Hct (36.0-46.0) % MCV (80-95) fL MCH (27.0-33.0) pg MCHC (32.0-36.0) % RDW (11.7-14.6) % Plt Count (130-400) 10^3/uL MPV (8.0-11.0) fL Immature Gran % % Neutrophils % % Lymphocytes % % Atypical Lymphs % % Monocytes % % Eosinophils % % Basophils % % Nucleated RBC % (0.0-0.3) % Absolute Neutrophils (1.2-6.7) 10^3/uL Absolute Lymphocytes (1.2-3.4) 10^3/uL Absolute Monocytes (0.1-0.8) 10^3/uL Absolute Eosinophils (0.0-0.7) 10^3/uL Absolute Basophils (0.0-0.2) 10^3/uL RBC Morphology Sodium (136-145) mmol/L Potassium (3.5-5.1) mmol/L Chloride (98-107) mmol/L Carbon Dioxide (21.0-32.0) mmol/L Anion Gap (3-11) mmol/L BUN (7-18) mg/dL Creatinine (0.55-1.02) mg/dL Est GFR (CKD-EPI 2020) (mL/min/1.73m2) Glucose (74-106) mg/dL Calcium (8.5-10.1) mg/dL Total Bilirubin (0.2-1.0) mg/dL AST (15-37) U/L ALT (14-59) U/L Alkaline Phosphatase (46-116) U/L Troponin I Pending 16 (<or=51) ng/L Total Protein (6.4-8.2) g/dL Albumin (3.4-5.0) g/dL TSH (0.36-3.74) uIU/mL Free T4 (0.76-1.46) ng/dL Urine Color Yellow (Yellow) Urine Clarity Clear (Clear) Urine pH 6.5 (5-8) Ur Specific [place] 1.010 (1.005-1.025) Urine Protein 30 H (Neg-Trace) mg/dL Urine Ketones Negative (Negative) mg/dL Urine Blood Negative (Negative) Urine Nitrite Negative (Negative) Urine Bilirubin Negative (Negative) Urine Urobilinogen 0.2 (Up to 0.2) mg/dL Ur Leukocyte Esterase Trace H (Negative) Urine RBC 0-2 (0-2) HPF Urine WBC 10-20 H (0-5) HPF Ur Epithelial Cells Few (Negative) HPF Urine Crystals Negative (Negative) HPF Urine Bacteria Few (Negative) HPF Urine Casts Negative (Negative) LPF Urine Mucus Trace (Negative) Urine Other Rare Renal (Negative) Ur Culture Indicated? Yes Urine Glucose Negative (Negative) mg/dL COVID-19 Source SARS-CoV-2 (PCR) (Negative) Influenza Type A (PCR) (Negative) Influenza Type B (PCR) (Negative) RSV (PCR) (Negative) 03/04/25 03/04/25 Range/Units 18:06 17:38 WBC 8.02 (4.4-10.8) 10^3/uL RBC 4.92 (3.93-5.22) 10^6/uL Hgb 14.5 (11.2-15.7) g/dL Hct 44.5 (36.0-46.0) % MCV 90 (80-95) fL MCH 29.5 (27.0-33.0) pg MCHC 32.6 (32.0-36.0) % RDW 12.2 (11.7-14.6) % Plt Count 304 (130-400) 10^3/uL MPV 10.4 (8.0-11.0) fL Immature Gran % 0.0 % Neutrophils % 22.0 % Lymphocytes % 66.0 % Atypical Lymphs % 4 % Monocytes % 6.0 % Eosinophils % 2.0 % Basophils % 0.0 % Nucleated RBC % 0.0 (0.0-0.3) % Absolute Neutrophils 1.76 (1.2-6.7) 10^3/uL Absolute Lymphocytes 5.61 H (1.2-3.4) 10^3/uL Absolute Monocytes 0.48 (0.1-0.8) 10^3/uL Absolute Eosinophils 0.16 (0.0-0.7) 10^3/uL Absolute Basophils 0.00 (0.0-0.2) 10^3/uL RBC Morphology Normal Sodium 141 (136-145) mmol/L Potassium 4.3 (3.5-5.1) mmol/L Chloride 105 (98-107) mmol/L Carbon Dioxide 24.3 (21.0-32.0) mmol/L Anion Gap 11.7 H (3-11) mmol/L BUN 23 H (7-18) mg/dL Creatinine 1.1 H (0.55-1.02) mg/dL Est GFR (CKD-EPI 2020) 48.63 (mL/min/1.73m2) Glucose 153 H (74-106) mg/dL Calcium 9.5 (8.5-10.1) mg/dL Total Bilirubin 0.6 (0.2-1.0) mg/dL AST 17 (15-37) U/L ALT 17 (14-59) U/L Alkaline Phosphatase 80 (46-116) U/L Troponin I 10 (<or=51) ng/L Total Protein 7.1 (6.4-8.2) g/dL Albumin 4.4 (3.4-5.0) g/dL TSH 5.07 H (0.36-3.74) uIU/mL Free T4 1.52 H (0.76-1.46) ng/dL Urine Color (Yellow) Urine Clarity (Clear) Urine pH (5-8) Ur Specific [place] (1.005-1.025) Urine Protein (Neg-Trace) mg/dL Urine Ketones (Negative) mg/dL Urine Blood (Negative) Urine Nitrite (Negative) Urine Bilirubin (Negative) Urine Urobilinogen (Up to 0.2) mg/dL Ur Leukocyte Esterase (Negative) Urine RBC (0-2) HPF Urine WBC (0-5) HPF Ur Epithelial Cells (Negative) HPF Urine Crystals (Negative) HPF Urine Bacteria (Negative) HPF Urine Casts (Negative) LPF Urine Mucus (Negative) Urine Other (Negative) Ur Culture Indicated? Urine Glucose (Negative) mg/dL COVID-19 Source Nasopharynx SARS-CoV-2 (PCR) Negative (Negative) Influenza Type A (PCR) Negative (Negative) Influenza Type B (PCR) Negative (Negative) RSV (PCR) Negative (Negative) 03/04/25 20:25 Urine Culture - Pending Urine - Reflex from [id number] Documentation Fingerstick Glucose Start: 03/04/25 17:37 Freq: Status: Active Protocol: Activity Type Activity Date Activity User E-sign Co-sign Detail Recorded Client Recorded Date Recorded By Document 03/04/25 17:36 BKG DAEMON(5) [id number] 03/04/25 17:37 BKG DAEMON(6) Intake and Output - 24 Hour Total 03/04/25 17:28 thru 03/04/25 17:58 Weight 88.451 kg Falls Risk Assessment History of Falls No History 03/04/25 18:04 Contributing Factors Confusion 03/04/25 18:04 Ambulatory Aids Independent 03/04/25 18:04 Tubes/Lines None 03/04/25 18:04 Gait Evaluation No gait disturbance 03/04/25 18:04 Cognition Cognitive impairment 03/04/25 18:04 Fall Total Score 18 03/04/25 18:04 Level of Risk Standard/Low Risk 03/04/25 18:04 v v v v v v v v v Sending and/or Receiving Nurses: Please use comment section below to note any information pertinent to the patient hand-off not included above. Information / Comments: Report received from ED. On RA. Ambulates ind. A+Ox4. Report received from: Kaylee SAAVEDRA
[2025-03-05 03:36] VITALS: BP 162/91; PULSE 96; RESP 18; TEMP 37.2; O2SAT 96
[2025-03-05 06:41] LABS: Abs Immature Grans 0.04 10^3/uL (0.0-0.06); HCT 38.9 % (36.0-46.0); HGB 12.8 g/dL (11.2-15.7); Immature Grans % 0.3 %; MCH 29.4 pg (27.0-33.0); MCHC 32.9 % (32.0-36.0); MCV 89 fL (80-95); MPV 10.5 fL (8.0-11.0); Platelet Count 252 10^3/uL (130-400); RBC 4.36 10^6/uL (3.93-5.22); RDW 12.2 % (11.7-14.6); RDW-SD 39.7 fL; WBC 11.84 10^3/uL (4.4-10.8)
[2025-03-05 07:02] LABS: ALT 17 U/L (14-59); AST 13 U/L (15-37); Albumin 3.7 g/dL (3.4-5.0); Alkaline Phosphatase 70 U/L (46-116); Anion Gap 9.2 mmol/L (3-11); BUN 21 mg/dL (7-18); Bilirubin, Total 0.6 mg/dL (0.2-1.0); CO2 25.8 mmol/L (21.0-32.0); Calcium 8.8 mg/dL (8.5-10.1); Chloride 106 mmol/L (98-107); Estimated GFR 61.87 (mL/min/1.73m2); Glucose 106 mg/dL (74-106); Magnesium 2.1 mg/dL (1.8-2.4); Potassium 4.1 mmol/L (3.5-5.1); Sodium 141 mmol/L (136-145); Total Protein 6.4 g/dL (6.4-8.2)
[2025-03-05 08:31] VITALS: BP 157/89; PULSE 84; RESP 17; TEMP 37.4; O2SAT 99
--- NOTE | 2025-03-05 08:33 | INITIAL_ITS ---
Date of service: 03/05/25 Time of Service: 08:33 Care Management Initial Assmt Initial Assessment Reason for Hospitalization: unresponsive episode Functional Status/Living Situation Patient Presentation: Karli was sitting up in bed visiting with her when CM met with her. She was very pleasant in interaction and agreeable to conversation. Karli and her Sukumar live in a single family home in [place], [place]. Their home is a renovated school house which they completely remodeled about 16 years ago.They have one son who is currently staying with them as he plans to have cataract surgery soon. He is a bridge construction inspector for a [employer]. Karli and Sukumar have lived in many different parts of the as well as in other countries. Sukumar was a naval officer and they spent a few years in the [facility] as well as in [facility] and [facility]. 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 She reported however that her interest lays in community development. 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 Karli has done work with various community agencies with emri writing and has also been very involved in her jainism. She is independnet at baseline and does not receive any community services. Town of Residence: [place], [place] Resides with: Spouse (Ish) Significant Other/Family: Local Natural Supports: family Employment Status: Retired Instrumental Activities of Daily Living (ADLs): Independent Activities/Hobbies/SocialSupport: golf, reading, traveling Medications Medication Management: No Issues/Barriers identified Physical Functioning/Mobility Assistive Device: none Advance Directives Advance Directives: Do you have an Advance Directive: Y , 01:43 AD On File at [facility]: N Today, 04:50 Date Asked 03/04/25 Today, 04:50 AD Date Reviewed COLST On File at [facility] COLST Date Scanned Code Status Resuscitation Status Full Code Insurance Coverage/Financial Issues Insurance: Medicare BC/BS Federal Care Team Visit Care Team Role Provider Type ALIVIA TAI Primary Care Provider NON-[facility] STAFF PHYSICIAN InPatient Luis Borges Other Providers OTHER Bina Holman Emergency Provider NURSE PRACTITIONER Napoleon Rangel MD Admit Provider [facility] STAFF PHYSICIAN Attending Provider Discharge Potential Discharge Needs: PCP F/U Appt Anticipated Barriers to Discharge: None Identified Patient/Family Education Needs: Review discharge instructions, discuss Ask Me Three Transportation: Private vehicle Plan: Anticipate Karli will be discharged home with no new services when medically cleared. She will follow up with her PCP and plan of care and transport with family. CM will follow and continue to assess for discharge needs. Social Determinants of Health Screening Social Determinants of health last assessed in clinic: 03/05/25 Will the Patient Participate in the Screening?: Yes Do you worry about having a steady place to live?: no Problems where you live: no known problems In the past 12 months, have you had to go without electric, gas, oil or water in your home?: no 1. Within the past 12 months, we worried whether our food would run out before we got money to buy more.: Never true 2. Within the past 12 months, the food we bought just didn't last and we didn't have money to get more.: Never true Has lack of transportation kept you from medical appointments or from doing things needed for daily living?: no Has anyone in your life made you feel unsafe or unsupported?: no How hard is it for you to pay for the very basics like food, housing, medical care, and heating? Would you say it is:: Not hard at all Do you want help finding or keeping work or a job?: I do not need or want help If for any reason you need help with day-to-day activities such as bathing, preparing meals, shopping, managing finances, etc., do you get the help you need?: I don?t need any help How often do you feel lonely or isolated from those around you?: Never Do you speak a language other than Azeri at home?: No Does the patient want assistance with any of the above?: No PFSH All Active Problems (Updated 03/05/25 @ 01:09 by Napoleon Rangel MD) Glaucoma (Chronic) Hypothyroidism (Chronic) Chronic tachycardia (Acute) Benign essential hypertension (Acute) Syncope and collapse (Acute) Lesion of humerus present on x-ray (Acute) Nodule of lower lobe of left lung (Acute) Unresponsive episode (Acute) Social History Smoking/Tobacco Use Status: Never Smoking risk assessment performed?: Yes Alcohol Intake: never Drug use: Never Substance use type: does not use Housing: house Do you feel safe at home: Yes Do you feel safe in your relationship?: Yes
--- NOTE | 2025-03-05 09:50 | IN_ITS ---
PT Notes Visit Reasons: Syncope Physical Therapy Inpatient Initial Evaluation Date: 03/05/2025 Referring Doctor: Dr Rangel PT Orders: PT CONSULT: Safety consult for discharge Precautions: Telemetry, standard Patient Profile/Admitting Diagnosis: Patient is an 85-year-old female presented to the ED status post syncopal episode while playing golf. Patient unresponsive at time of arrival to the ED. While en route to CT scan patient became alert. Head CT scan negative for acute findings. Patient placed on telemetry and admitted for observation. Chest x-ray revealed lesion to right humeral head and left lower lobe nodule. PMHX: Glaucoma (Chronic) Hypothyroidism (Chronic) Chronic tachycardia (Acute) Benign essential hypertension (Acute) Syncope and collapse (Acute) Lesion of humerus present on x-ray (Acute) Nodule of lower lobe of left lung (Acute) Unresponsive episode (Acute) Social History/Home Situation: Patient resides with her in two-story home with 2 steps to enter with rail and flight of stairs with rail to second floor. Patient independent ambulation without assistive device, independent ADLs, homemaking, cooking, cleaning. Her ambulates with a cane and requires assistance at times which she is able to provide Equipment Owned/DME: None; patient has access to FWW or cane Subjective: Patient reports she has had similar episodes of tachycardia in the past. After these episodes she feels drained but otherwise feels she is back to herself. Objective: [] General Observation: Younger appearing than stated age female supine in bed on her computer. Telemetry in place Mental Status: Alert and oriented x 4, able to follow instructions, cooperative, agreeable to participate in evaluation Pain: Denied ROM: [] Right Upper Extremity: WFL Left Upper Extremity: WFL WFL Right Lower Extremity: WFL Left Lower Extremity: WFL Strength: [] Right Upper Extremity: >3/5 no MMT d/t syncopal episode Left Upper Extremity: >3/5 no MMT d/t syncopal episode Right Lower Extremity: >3/5 no MMT d/t syncopal episode Left Lower Extremity: >3/5 no MMT d/t syncopal episode except left hip abduction 3 -/5 Sensation: Intact Bed Mobility/Transfers: [] Supine to sit independent Sit to stand independent Stand to sit independent Bed to chair independent Gait: Ambulated 50 feet without assistive device independently. Patient requested FWW from longer distance completing at distance of 300 feet with reciprocal pattern no loss of balance. Patient reports walker provided ability for her to walk a long distance due to feeling drained Balance: [] Static Sitting: Normal Dynamic Sitting: Normal Static Standing: Normal Dynamic Standing: Good Special Tests: [] Mobility Limitations Standardized Measure [] [facility] AM-PAC 6 clicks Basic Mobility Inpatient Short Form: [] Raw Score: 24 CMS Score: 0% deficit Informed Consent/Education: Patient instructed in purpose of PT consult. Assessment: Patient is an 85-year-old female who presents with clinical signs and symptoms consistent with current/admitting diagnoses that have resulted to mobility limitations, gait instability, generalized weakness, and impairment of motor control as demonstrated by the following impairment level findings: 1. Decreased strength to left hip major muscle groups 2. Impaired standing balance 3. Impaired functional activity tolerance Impairments are contributing to the following functional limitations: 1. Increase completion time for mobility ADL performance 2. Increased fall risk due to syncopal episodes and left hip deficit Despite above listed deficits patient is appropriate for discharge to home when medically appropriate without use of assistive device within home. Recommendation for cane or FWW for community distances initially until feeling of drained resolves. Patient is in agreement with this however declines to accept FWW at this time stating she has 1 at home she can borrow. Patient is assessed as a moderate complexity based on the following: History:85-year-old female with impairment level findings, functional limi tations, and past medical history as indicated above Examination: Demonstrable impairment in strength, balance, and mobility level with underlying impairments and functional limitations as documented above Presentation: Stable/evolving Decision Making: Moderate Goals: N/A. PT evaluation and 1-2 treatment sessions only for functional mobility training using recommended AD and for HEP instruction. Plan of Care/Treatment Plan: N/A. PT evaluation and 1-2 treatment session only for functional mobility training using recommended AD and for HEP instruction. DISCHARGE RECOMMENDATIONS: Home when medically appropriate. No further skilled PT indicated at this time TREATMENT CODE/TIME: 60870/ [id number] Thank you for the opportunity to participate in the care of this patient. Joanne Barksdale PT [facility]
[2025-03-05 11:02] VITALS: BP 132/104; PULSE 86; RESP 17; TEMP 37.3; O2SAT 96
--- NOTE | 2025-03-05 11:18 | DSE_ITS ---
Date of service: 03/05/25 Time of Service: 11:19 DS: Diagnosis Discharge Diagnosis (1) Unresponsive episode: Status: Acute (2) Syncope and collapse: Status: Acute (3) Chronic tachycardia: Status: Acute (4) Benign essential hypertension: Status: Acute (5) Hypothyroidism: Status: Chronic (6) Nodule of lower lobe of left lung: Status: Acute (7) Lesion of humerus present on x-ray: Status: Acute (8) Glaucoma: Status: Chronic Discharge Plan Disposition Patient Disposition: Home Condition: Stable Discharge Details Reason For Visit: Syncope Admit Date/Time: 03/04/25 20:44 Admit Provider: Napoleon Rangel Attending Provider: Napoleon Rangel Primary Care Provider: ALIVIA TAI Hospital Course Hospital Course: This is an 85-year-old female past medical history significant for hypertension hypothyroidism glaucoma who presented to the emergency department after family members. Of unresponsiveness patient was occurred after participating in a golf tournament state. Pulmonary she initially resolved her heart racing and told her she was feeling well. There was no reports of chest pain. She sat down in the car and reports she passed out. When she arrived at the ED she was initially unresponsive with eyes open but not tracking after 5 minutes she began interacting. She was found to be tachycardic and hypotensive with a systolic of 93/41 and tachypneic. EKG nonischemic chest x-ray with a 9 mm left lower lobe pulmonary nodule and a 1 cm sclerotic density in the right humeral head no acute pathology. She received IV fluids and was admitted to the hospital services, she remained in normal sinus rhythm. Patient with vital signs normalized. 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 discussed with DR Coleman Home Meds and New Rx's Prescriptions: Continued levothyroxine 125 MCG tablet 112 mcg PO DAILY lisinopril 5 mg tablet 5 mg PO DAILY latanoprost 0.005 % drops 1 drp ophthalmic (eye) HS Patient Comments: INSTILL ONE DROP IN EACH EYE EVERY EVENING timolol maleate 0.5 % drops 1 drp ophthalmic (eye) DAILY Patient Comments: INSTILL 1 DROP INTO BOTH EYES EVERY MORNING metoprolol tartrate 12.5 MG tablet 12.5 mg PO DAILY Discharge Instructions Instructions: Syncope (Fainting) (DC) Additional Instructions: wear cardiac recorder as directed. drink 6-8 glasses of water daily to stay well hydrated. resume usual medications as directed. Stand Alone Forms: Nursing Discharge Form Referrals: ALIVIA TAI [Primary Care Provider, Medicine] Referral Note: Please call to schedule follow up appointment. Activity:: Activity as Tolerated Equipment/Supplies:: No Equipment Needed Diet:: As Tolerated Discharge Orders Discharge Orders: Discharge Order (Routine); Ordered 03/05/25 Ordered By: Shante Hauser Other Ambulatory Orders: Cardiac Event Recorder (Routine) Timeframe: [id number] Facility: [facility] - Location: Respiratory Therapy Ordered By: Shante Hauser DS: Summary Time Spent with Patient providing and/or coordinating discharge services: Greater than 30 minutes Status at Discharge Functional status at discharge: independent ambulation Overall status at discharge: patient is back to baseline Mental Status: mental status grossly normal Speech and Movement: speech and movement normal Mood: congruent mood Affect: normal affect Exam Narrative Exam Narrative: Okay acute distress head is atraumatic normocephalic eyes nonicteric noninjected neck supple full range of motion no JVD cardiovascular regular rate and rhythm no murmurs appreciated respirations even and unlabored abdomen benign moves all extremities no peripheral edema neurologic she is awake alert oriented no focal deficits psychiatric appropriate mood and affect Psych Mental Status: mental status grossly normal Speech and Movement: speech and movement normal Mood: congruent mood Affect: normal affect DS: Data Vitals/I&O Vitals and I&O: Vital Signs Temperature 37.3 C 03/05/25 11:02 Temperature Source Temporal Artery Scan 03/05/25 11:02 Pulse 86 03/05/25 11:02 Pulse 85 03/04/25 18:10 Respiratory Rate 17 03/05/25 11:02 Respiratory Effort Normal 03/04/25 22:51 Respiratory Depth Normal 03/04/25 22:51 Respiratory Pattern Normal 03/04/25 22:51 Blood Pressure 132/104 H 03/05/25 11:02 Blood Pressure Mean 113 03/05/25 11:02 Blood Pressure Position Sitting 03/04/25 18:04 Pulse Oximetry 96 03/05/25 11:02 Oxygen Delivery Method Room Air 03/05/25 11:02 Oxygen Flow Rate 0 03/05/25 11:02 Pain Level 0 03/05/25 11:02 Intake & Output 03/04/25 03/04/25 03/05/25 11:59 23:59 11:59 Output Total 300 / 300 Balance -300 / -300 Weight 88.451 kg Output: Urine 300 / 300 Other: Urine Color Yellow Urine Appearance Cloudy Data Completed and Pending Labs on day of discharge: Labs from last 24 hours 03/05/25 03/04/25 03/04/25 06:05 20:54 20:25 WBC 11.84 H RBC 4.36 Hgb 12.8 Hct 38.9 MCV 89 MCH 29.4 MCHC 32.9 RDW 12.2 Plt Count 252 MPV 10.5 Immature Gran % 0.3 Neutrophils % 75.4 Lymphocytes % 14.6 Atypical Lymphs % Monocytes % 6.9 Eosinophils % 2.6 Basophils % 0.2 Nucleated RBC % 0.0 Absolute Neutrophils 8.93 H Absolute Lymphocytes 1.73 Absolute Monocytes 0.82 H Absolute Eosinophils 0.31 Absolute Basophils 0.02 RBC Morphology Sodium 141 Potassium 4.1 Chloride 106 Carbon Dioxide 25.8 Anion Gap 9.2 BUN 21 H Creatinine 0.9 Est GFR (CKD-EPI 2020) 61.87 Glucose 106 Calcium 8.8 Magnesium 2.1 Total Bilirubin 0.6 AST 13 L ALT 17 Alkaline Phosphatase 70 Troponin I 36 Total Protein 6.4 Albumin 3.7 TSH Free T4 Urine Color Yellow Urine Clarity Clear Urine pH 6.5 Ur Specific [place] 1.010 Urine Protein 30 H Urine Ketones Negative Urine Blood Negative Urine Nitrite Negative Urine Bilirubin Negative Urine Urobilinogen 0.2 Ur Leukocyte Esterase Trace H Urine RBC 0-2 Urine WBC 10-20 H Ur Epithelial Cells Few Urine Crystals Negative Urine Bacteria Few Urine Casts Negative Urine Mucus Trace Urine Other Rare Renal Ur Culture Indicated? Yes Urine Glucose Negative COVID-19 Source SARS-CoV-2 (PCR) Influenza Type A (PCR) Influenza Type B (PCR) RSV (PCR) 03/04/25 03/04/25 03/04/25 19:08 18:06 17:38 WBC 8.02 RBC 4.92 Hgb 14.5 Hct 44.5 MCV 90 MCH 29.5 MCHC 32.6 RDW 12.2 Plt Count 304 MPV 10.4 Immature Gran % 0.0 Neutrophils % 22.0 Lymphocytes % 66.0 Atypical Lymphs % 4 Monocytes % 6.0 Eosinophils % 2.0 Basophils % 0.0 Nucleated RBC % 0.0 Absolute Neutrophils 1.76 Absolute Lymphocytes 5.61 H Absolute Monocytes 0.48 Absolute Eosinophils 0.16 Absolute Basophils 0.00 RBC Morphology Normal Sodium 141 Potassium 4.3 Chloride 105 Carbon Dioxide 24.3 Anion Gap 11.7 H BUN 23 H Creatinine 1.1 H Est GFR (CKD-EPI 2020) 48.63 Glucose 153 H Calcium 9.5 Magnesium Total Bilirubin 0.6 AST 17 ALT 17 Alkaline Phosphatase 80 Troponin I 16 10 Total Protein 7.1 Albumin 4.4 TSH 5.07 H Free T4 1.52 H Urine Color Urine Clarity Urine pH Ur Specific [place] Urine Protein Urine Ketones Urine Blood Urine Nitrite Urine Bilirubin Urine Urobilinogen Ur Leukocyte Esterase Urine RBC Urine WBC Ur Epithelial Cells Urine Crystals Urine Bacteria Urine Casts Urine Mucus Urine Other Ur Culture Indicated? Urine Glucose COVID-19 Source Nasopharynx SARS-CoV-2 (PCR) Negative Influenza Type A (PCR) Negative Influenza Type B (PCR) Negative RSV (PCR) Negative 03/04/25 20:25 Urine - Reflex from Ua Urine Culture - Pending Preliminary micro results at discharge 03/04/25 20:25 Urine - Reflex from Ua Urine Culture - Pending PFSH All Active Problems (Updated 03/05/25 @ 01:09 by Napoleon Rangel MD) Glaucoma (Chronic) Hypothyroidism (Chronic) Chronic tachycardia (Acute) Benign essential hypertension (Acute) Syncope and collapse (Acute) Lesion of humerus present on x-ray (Acute) Nodule of lower lobe of left lung (Acute) Unresponsive episode (Acute) Social History Smoking/Tobacco Use Status: Never Smoking risk assessment performed?: Yes Alcohol Intake: never Drug use: Never Substance use type: does not use Housing: house Do you feel safe at home: Yes Do you feel safe in your relationship?: Yes Time Spent with Patient Time Spent with Patient: 45-69 minutes Time was spent: preparing to see the patient(eg.review tests), obtaining and/or reviewing separately otained hiistory, ordering medications,tests, procedures, indepentently interpreting results and counseling the patient
[2025-03-05 14:00] LABS: D-Dimer 852 ng/mlFEU (<500)
--- NOTE | 2025-03-05 18:11 | PDOC.CMDIS ---
Date of service: 03/05/25 Time of Service: 18:11 LACE Index Scoring Tool Questions: Length of Stay (in days): 1 Was the patient admitted via the E.D.?: Yes E.D. Visits: 1 Answers: Total Score: 5 Risk of Readmission: Low Risk Care Management Discharge Plan Reason for Hospitalization: syncope Discharge Plan: Karli will be discharged home with no new services. She will follow up with her PCP and plan of care and transport with her . Patient/Family Education Needs: Review of discharge instructions, limitations, follow up plan and discuss Ask Me Three
[2025-03-05 20:36] LABS: Lab Add On Test DONE
--- NOTE | 2025-03-07 10:26 | NUR.NOTE ---
Access chart to reconcile EKG orders with EKG's in [facility]. Duplicate order cancelled. Nursing Note:
== END 2025-03-05 15:15 | disposition home or self-care (01) ==
LOC: ER 17:48 → MS 21:38
PROVIDERS: Admitting Provider Family Medicine; Emergency Provider Nurse Practitioner Family; PCP Internal Medicine; Responsible Provider Nurse Practitioner Acute Care; Visit Provider Family Medicine
DX: R40.4 Transient alteration of awareness (principal); I95.9 Hypotension, unspecified; R00.0 Tachycardia, unspecified; E03.9 Hypothyroidism, unspecified; I10 Essential (primary) hypertension; R91.1 Solitary pulmonary nodule; H40.9 Unspecified glaucoma; Z79.899 Other long term (current) drug therapy; M89.8X2 Other specified disorders of bone, upper arm
CPT/HCPCS: 00123; 36415; 36416; 70496; 70498; 80053; 82962; 87637; 93005; 96360; 97162; 99285; 71045; 81003; 81015; 83735; 84439; 84443; 84484; 85025; 85379; 87086; 93010; 93306; 99222; 99239; G0378; J3490

== ENCOUNTER 2025-03-05 11:48 | Outpatient (CLI) | payer MEDICARE, BC, SELFPAY | END 2025-03-05 11:49 | disposition home or self-care (01) | PROVIDERS: PCP Internal Medicine; Visit Provider Internal Medicine | DX: R55 Syncope and collapse (principal) | CPT/HCPCS: 93270 ==